=== PATIENT | male | born 1985 | race Caucasian/White ===

== ENCOUNTER 2019-03-18 03:57 | Emergency (ER) | payer OTHER ==
[~2019-03-18] VITALS: Ht 167.6 cm; Wt 75.0 kg
--- NOTE | 2019-03-18 04:10 | NUR ---
DR. VILLAGRAN AT BEDSIDE ASSESSING PATIENT
[2019-03-18] MEDS ORDERED: meclizine 12.5mg tablet PO ONE (04:15)
[2019-03-18] MEDS ORDERED: ondansetron/PF 4mg/2ml inj IV ONE (04:15)
[2019-03-18] MEDS ORDERED: LORazepam 2 mg/ml vial IV ONE ×2 (04:15→05:30)
[2019-03-18] MEDS ORDERED: normal saline 1000ML IV soln IVB ONE (04:15)
[2019-03-18] MEDS ORDERED: ONDA4TAB12 PO (05:31)
[2019-03-18] MEDS ORDERED: MECL-111 PO (05:31)
[2019-03-18] MEDS ORDERED: LORA1TAB PO (05:36)
[2019-03-18 06:42] VITALS: BP 110/68
== END 2019-03-18 06:45 | disposition home or self-care (01) ==
LOC: ER 03:58
DX: R42 Dizziness and giddiness (principal); Z79.899 Other long term (current) drug therapy
CPT/HCPCS: 70450; 96361; 96374; 96375; 99284; J2060; J2405; J7030; J8597